=== PATIENT | female | born 1995 | race Caucasian/White ===

== ENCOUNTER 2020-10-25 19:30 | Emergency (ER) | payer OTHER ==
[2020-10-25 19:50] VITALS: BP 112/78; PULSE 89; TEMP 98.3; BMI 19.5
[2020-10-25] MEDS ORDERED: ACETAMINOPHEN 500 MG TABLET (FP) PO ONE (20:54)
[2020-10-25] MEDS ORDERED: DIPHTH,PERTUSS(ACELL),TET 0.5 ML DISP.SYRIN IM ONE (21:07)
[2020-10-25] MEDS ORDERED: ACETAMINOPHEN 325 MG TABLET (FP) ONE (21:07)
== END 2020-10-25 22:24 | disposition home or self-care (01) ==
LOC: JER 19:30
DX: S09.90XA Unspecified injury of head, initial encounter (principal); J45.909 Unspecified asthma, uncomplicated; W22.8XXA Striking against or struck by other objects, initial encounter
CPT/HCPCS: 70450-TC; 72125-TC; 73070-TC-RT-FY; 99284-25